=== PATIENT | male | born 1955 | race Caucasian/White ===

== ENCOUNTER → 2022-06-30 10:35 | Outpatient (CLI) | payer MEDICARE, OTHER, SELFPAY ==
--- NOTE | 2022-06-30 | DI.MRI.S_ITS ---
PROCEDURE: MR LUMBAR SPINE WO CON INDICATIONS: Strain of muscle, fascia and tendon of lower back TECHNIQUE: Noncontrast sagittal T1 spin echo and T2 fast echo, sagittal STIR, and T2 fast spin echo through the lumbar spine. In cases with scoliosis, additional coronal T2 fast spin echo may be performed. COMPARISON: [facility] Outside Film, CR, XR LUMBAR SPINE WITH OBLIQUES PLUS FLEXION EXTENSION, 05/25/2022, 9:36. FINDINGS: Image quality: Excellent. Alignment and Curvature: 5 lumbar type vertebral bodies are present by plain film. 2 mm of anterolisthesis of L3 on L4. Bone Marrow: Marrow is of normal overall signal. No acute vertebral body compression fractures. Minimal reactive signal throughout the endplates of the thoracolumbar spine. Spinal Cord: Conus medullaris terminates at the lower L1 level. Visualized cord demonstrates normal signal and size. Paraspinous Soft Tissues: No paravertebral masses. T12-L1: Congenital canal stenosis. Mild disc desiccation and diffuse disc bulge. Mild facet and ligamentum flavum hypertrophy. Mild epidural lipomatosis. Mild canal stenosis. Mild bilateral foraminal stenosis. L1-L2: Mild disc desiccation and diffuse disc bulge. Congenital canal stenosis. Mild facet and ligamentum flavum hypertrophy. Mild epidural lipomatosis. Mild canal stenosis. Mild bilateral foraminal stenosis. L2-L3: Congenital canal stenosis. Mild disc desiccation. Mild facet and ligamentum flavum hypertrophy. Mild epidural lipomatosis. Mild canal stenosis. Mild bilateral foraminal stenosis. L3-L4: Congenital canal stenosis. Mild disc height loss and desiccation. Mild diffuse disc bulge. Moderate facet and ligamentum flavum hypertrophy. Mild epidural lipomatosis. Severe canal stenosis. Moderate subarticular foraminal stenosis bilaterally. L4-L5: Congenital canal stenosis. Mild disc desiccation and diffuse disc bulge. Mild right facet and ligamentum flavum hypertrophy. Severe canal stenosis. Moderate bilateral foraminal stenosis. L5-S1: Mild disc height loss. Mild bilateral facet hypertrophy. Mild canal stenosis. Mild bilateral foraminal stenosis. IMPRESSION: 1. Diffuse congenital canal stenosis with superimposed disc and facet disease, as well as ligamentum flavum hypertrophy and epidural lipomatosis. 2. Multilevel canal stenoses, worst at L3-L4 and L4-L5 where there are severe canal stenoses. 3. Multilevel foraminal stenoses, worst at L3-L4 and L4-L5 where there are moderate foraminal stenoses. Dictated by: Loretta Cohen M.D. on 06/30/2022 at 11:48 Approved by: Loretta Cohen M.D. on 06/30/2022 at 11:51
== END ==
PROVIDERS: Referring Provider Physical Medicine & Rehabilitation Pain Medicine; Visit Provider Physical Medicine & Rehabilitation Pain Medicine
DX: S39.012A Strain of muscle, fascia and tendon of lower back, initial encounter (principal); M48.061 Spinal stenosis, lumbar region without neurogenic claudication; X58.XXXA Exposure to other specified factors, initial encounter
CPT/HCPCS: 72148

== ENCOUNTER → 2023-01-14 11:24 | Outpatient (CLI) | payer MEDICARE, OTHER, SELFPAY | PROVIDERS: Absent Provider Family Medicine; Family Provider Family Medicine; PCP Family Medicine; Referring Provider Anesthesiology; Visit Provider Anesthesiology | DX: M54.50 Low back pain, unspecified (principal); G89.29 Other chronic pain; M48.061 Spinal stenosis, lumbar region without neurogenic claudication; M54.16 Radiculopathy, lumbar region | CPT/HCPCS: 95886; 95910 ==

== ENCOUNTER → 2023-05-25 09:07 | Outpatient (CLI) | payer MEDICARE, OTHER, SELFPAY ==
[2023-05-25 10:41] LABS: Prostate Specific Antigen < 0.064 ng/mL (0.10-4.00)
[2023-05-25 10:54] LABS: Vitamin B12 Reflex MMA if <400 868 pg/mL (239-931)
[2023-05-25 20:16] LABS: Vitamin D 25 Hydroxy (D3) 42.8 ng/mL (30.0-100.0)
== END ==
PROVIDERS: Family Provider Family Medicine; PCP Family Medicine; Referring Provider Family Medicine; Visit Provider Family Medicine
DX: C61 Malignant neoplasm of prostate (principal); E55.9 Vitamin D deficiency, unspecified; E53.8 Deficiency of other specified B group vitamins; Z78.9 Other specified health status
CPT/HCPCS: 36415; 82306; 82607; 84153

== ENCOUNTER → 2024-06-13 09:55 | Outpatient (CLI) | payer MEDICARE, OTHER, SELFPAY ==
[2024-06-13 19:25] LABS: Add Manual Diff / Slide Review NO; Basophils Absolute Auto 100 /uL (0-100); Eosinophils Absolute Auto 100 /uL (0-450); Eosinophils Percent Auto 1.8 % (2-4); Hematocrit 45.6 % (41-53); Hemoglobin 15.1 g/dL (13.5-17.5); Lymphocytes Absolute Auto 1700 /uL (1100-4500); Lymphocytes Percent Auto 33.8 % (25-40); Mean Corpuscular HGB Conc 33.2 % (30-36); Mean Corpuscular Hemoglobin 30.8 PG (26-34); Mean Corpuscular Volume 92.7 fL (80-100); Monocytes Absolute Auto 500 /uL (0-900); Monocytes Percent Auto 10.2 % (3-14); Neutrophils Absolute Auto 2700 /uL (1500-7000); Neutrophils Percent Auto 53.2 % (50-75); Platelet Count 184 X10^3/uL (150-400); Red Blood Cell Count 4.91 X10^6/uL (4.5-5.9); Red Cell Distribution Width 13.1 % (11.6-14.8); White Blood Cell Count 5.1 X10^3/uL (4.5-11.0)
[2024-06-13 19:40] LABS: Alanine Aminotransferase 38 IU/L (<50); Albumin Globulin Ratio 1.6 (1.0-2.8); Alkaline Phosphatase 96 U/L (38-126); Aspartate Aminotransferase 78 IU/L (17-59); BUN Creatinine Ratio 14.3 (6-22); Blood Urea Nitrogen 11 mg/dL (9-20); Calcium 9.5 mg/dL (8.4-10.2); Carbon Dioxide 27 mmol/L (22-32); Chloride 101 mmol/L (98-107); Cholesterol 200 mg/dL (140-199); Estimated Glomerular Filt Rate > 60 mL/min (>60); Globulin 3.1 g/dL (1.7-4.1); Glucose 79 mg/dL (80-110); HDL Cholesterol 83 mg/dL (40-60); HEMOLYSIS 31 (0-50); LDL Cholesterol Calculated 106 mg/dL (<100); Potassium 4.2 mmol/L (3.4-5.1); Sodium 136 mmol/L (137-145); Total Protein 8.1 g/dL (6.3-8.2); Triglycerides 55 mg/dL (35-150)
[2024-06-13 20:08] LABS: Thyroid Stimulating Hormone 4.06 uIU/mL (0.47-4.68)
[2024-06-15 07:09] LABS: PSA Ultrasensitive <0.006 ng/mL (0.000-4.000)
== END ==
PROVIDERS: Family Provider Family Medicine; PCP Family Medicine; Visit Provider Family Medicine
DX: C61 Malignant neoplasm of prostate (principal); R79.89 Other specified abnormal findings of blood chemistry; R94.6 Abnormal results of thyroid function studies; R03.0 Elevated blood-pressure reading, without diagnosis of hypertension; Z13.6 Encounter for screening for cardiovascular disorders; Z13.1 Encounter for screening for diabetes mellitus; Z13.29 Encounter for screening for other suspected endocrine disorder; Z13.0 Encounter for screening for diseases of the blood and blood-forming organs and certain disorders involving the immune mechanism
CPT/HCPCS: 80053; 80061; 84153; 84443; 85025

== ENCOUNTER → 2025-02-21 08:47 | Outpatient (CLI) | payer MEDICARE, OTHER, SELFPAY ==
[2025-02-21 10:46] LABS: Alanine Aminotransferase 32 IU/L (<50); Albumin 4.7 g/dL (3.5-5.0); Albumin Globulin Ratio 1.7 (1.0-2.8); Alkaline Phosphatase 82 U/L (38-126); Globulin 2.7 g/dL (1.7-4.1); Total Protein 7.4 g/dL (6.3-8.2)
[2025-02-21 10:55] LABS: HEMOLYSIS 94 (0-50)
== END ==
PROVIDERS: Family Provider Family Medicine; PCP Family Medicine; Referring Provider Family Medicine; Visit Provider Family Medicine
DX: C61 Malignant neoplasm of prostate (principal); R79.89 Other specified abnormal findings of blood chemistry
CPT/HCPCS: 36415; 80076; 84153